=== PATIENT | female | born 2000 | race Caucasian/White ===

== ENCOUNTER 2024-08-04 21:26 | Emergency (ER) | payer SELFPAY ==
--- OUTSIDE RECORDS SUMMARY | 2022-06-17 20:00 | XMS_ITS | Continuity of Care Document ---
Author Organization [facility] o Address [address] [place] [address] Phone Care Team Providers Care Commissions Specialist Name Role Phone Kanu Patricia MD Unavailable Unavailable Procedures Procedure Date Independant Medical Exam Independant Medical Exam Advance Directives Directive Yes / No Effective Date File Name No Information Encounters Encounter Description Practice Location Reason(s) For Visit Diagnoses Date Provider Providers Copied on Encounter [facility], [facility] [place], [address], tel:[phone] [place] No Information 3 Harshad Bobby. [address] [place] [address], Formerly [facility], [facility], . tel:[phone] Referring Provider: Kanu Mcgill, [address] [place] [address], Formerly [facility], [facility]. tel:[phone] Family History Family Member Type Diagnosis Age At Onset No Information Payers Payer name Insurance type Covered green party ID Authoriza tion(s) No Information Social History Type Description Quantity Date Captured Comments Sex Male Smoking Status No Information Chief Complaint And Reason For Visit No Information Reason For Referral Reason For Referral No Information History Of Present Illness Encounter Date Complaint History Of Prese nt Illness No Information Functional Status Date Functional Assessmen t No Information Instructions Date Instruction Additional Infor mation No Information Assessments Type Assessment Date No Information Patient Care Teams Name Effective Dates (start - stop) Status Members No Information
[2024-08-04 21:45] VITALS: BP 139/89; PULSE 99; RESP 16; TEMP 36.8; O2SAT 100; BMI 29.9
--- OUTSIDE RECORDS SUMMARY | 2024-08-04 21:51 | XMS_ITS | Clinical Summary ---
Author Organization [employer] Address [address] [address] Care Team Providers Care Patient Representative Name Role Phone [facility] Primary Care Provider Allergies No known active allergies Medications No known medications Encounters Date Type Department Care Team Description 05/09/2024 1:34 PM EDT - 05/09/2024 2:20 PM EDT Emergency [facility] Emergency Department [address] [place] [phone] Len Dunlap MD Acute right ankle pain (Primary Dx) Discharge Disposition: Home or Self Care 05/09/2024 Travel from Last 3 Months Social History Tobacco Use Types Packs/Day Years Used Date Smoking Tobacco: Former Cigarettes Smokeless Tobacco: Current Tobacco Cessation:Ready to Q uit: Not Asked; Counseling Given: Not Answered Comments:vapes Alcohol Use Standard Drinks/Week Comments Yes 0 (1 standard drink = 0.6 oz pur e alcohol) Comments Unknown Sex and Gender Information Value Date Recorded Sex Assigned at Not on file Legal Sex Female 4:24 PM CDT Gender Identity Not on file Sexual Orientation Not on file Last Filed Vital Signs Vital Sign Reading Time Taken Comments Blood Pressure 149/94 05/09/2024 1:41 PM EDT Pulse 112 05/09/2024 1:45 PM EDT Temperature 36.3 C (97.3 F) 05/09/2024 1:41 PM EDT Respiratory Rate 16 05/09/2024 1:41 PM EDT Oxygen Saturation 98% 05/09/2024 1:45 PM EDT Inhaled Oxygen Concentration - - Weight 93 kg (205 lb) 05/09/2024 1:41 PM EDT Height 165.1 cm (5' 5 ) 03/04/2024 9:13 PM EST Body Mass Index 34.11 03/04/2024 9:13 PM EST Plan of Treatment Health Maintenance Due Date Last Done Comments Depression Screening (12+) 2010 Tobacco Cessation Counseling and Screening (12+) 2010 HIV Screening 2013 Hepatitis C Screening 2016 Lipid Panel 2018 Pap Smear 06/27/2019 COVID-19 VACCINE ( - 2023-2 5 season) 2023 10/28/2021, 01/13/2021 Influenza Vaccine (Season Ended) 2024 DTAP/TDAP/TD VACCINES (4 - T d or Tdap) 03/04/2033 03/04/2023, 10/23/2022, 07/28/2009 Pneumococcal Vaccine: 0-49 Years Aged Out No longer eligible b ased on patient's age to complete this topic Procedures Procedure Name Priority Date/Time Associated Diagnosis Comments XR ANKLE 3 VIEWS RIGHT STAT 05/09/2024 2:01 PM EDT XR FOOT 3 VIEWS RIGHT STAT 05/09/2024 2:01 PM EDT from Last 3 Months Results * XR foot 3 views right (05/09/2024 2:01 PM EDT) Anatomical Region Laterality Modality Foot, Ankle X-Ray 05/10/2024 12:2 5 PM EDT Impressions 05/10/2024 3:44 PM EDT No acute osseous findings. Mild ankle soft tissue swelling. Images personally reviewed, interpreted and dictated by KAREN Gentile. Narrative 05/10/2024 3:44 PM EDT CLINICAL INDICATION: Fall. EXAMINATION TECHNIQUE: XR FOOT 3 VIEWS RIGHT, XR ANKLE 3 VIEWS RIGHT COMPARISON: None. FINDINGS: Ankle: No acute fracture or malalignment. The ankle mortise is intact. The talar dome shows no osseous abnormalities. Bone mineralization is within normal limits. Mild ankle soft tissue swelling. No radiodense foreign bodies. Foot: No acute fracture or malalignment. No acute soft tissue abnormality. No radiodense foreign bodies. Bone mineralization is within normal limits. Procedure Note Duong Araiza MD - 05/10/2024 CLINICAL INDICATION: Fall. EXAMINATION TECHNIQUE: XR FOOT 3 VIEWS RIGHT, XR ANKLE 3 VIEWS RIGHT COMPARISON: None. FINDINGS: Ankle: No acute fracture or malalignment. The ankle mortise is intact. The talar dome shows no osseous abnormalities. Bone mineralization is within normal limits. Mild ankle soft tissue swelling. No radiodense foreign bodies. Foot: No acute fracture or malalignment. No acute soft tissue abnormality. No radiodense foreign bodies. Bone mineralization is within normal limits. IMPRESSION: No acute osseous findings. Mild ankle soft tissue swelling. Images personally reviewed, interpreted and dictated by KAREN Getnile. Holley Faith PA-C [facility] Final Result * XR ankle 3 views right (05/09/2024 2:01 PM EDT) Anatomical Region Laterality Modality Leg, Ankle, Foot X-Ray 05/10/2024 12:2 5 PM EDT Impressions 05/10/2024 3:44 PM EDT No acute osseous findings. Mild ankle soft tissue swelling. Images personally reviewed, interpreted and dictated by KAREN Gentile. Narrative 05/10/2024 3:44 PM EDT CLINICAL INDICATION: Fall. EXAMINATION TECHNIQUE: XR FOOT 3 VIEWS RIGHT, XR ANKLE 3 VIEWS RIGHT COMPARISON: None. FINDINGS: Ankle: No acute fracture or malalignment. The ankle mortise is intact. The talar dome shows no osseous abnormalities. Bone mineralization is within normal limits. Mild ankle soft tissue swelling. No radiodense foreign bodies. Foot: No acute fracture or malalignment. No acute soft tissue abnormality. No radiodense foreign bodies. Bone mineralization is within normal limits. Procedure Note Duong Araiza MD - 05/10/2024 CLINICAL INDICATION: Fall. EXAMINATION TECHNIQUE: XR FOOT 3 VIEWS RIGHT, XR ANKLE 3 VIEWS RIGHT COMPARISON: None. FINDINGS: Ankle: No acute fracture or malalignment. The ankle mortise is intact. The talar dome shows no osseous abnormalities. Bone mineralization is within normal limits. Mild ankle soft tissue swelling. No radiodense foreign bodies. Foot: No acute fracture or malalignment. No acute soft tissue abnormality. No radiodense foreign bodies. Bone mineralization is within normal limits. IMPRESSION: No acute osseous findings. Mild ankle soft tissue swelling. Images personally reviewed, interpreted and dictated by KAREN Gentile. Holley Faith PA-C [facility] Final Result from Last 3 Months Insurance AETNA [facility] Care Teams Patient Representative Relationship Specialty Start Date End Date [facility] Connection, [facility] [place] [address] PCP - General 03/04/24
--- OUTSIDE RECORDS SUMMARY | 2024-08-04 21:51 | XMS_ITS | Referral Summary ---
Author Organization [employer] Address [address] [place] [address] Care Team Providers Care Liquified Natural Gas Specialist Name Role Phone [facility], [facility] Primary Care Provider Encounters Date Type Department Care Team Description 05/09/2024 Travel 05/09/2024 1:34 PM EDT - 05/09/2024 2:20 PM EDT Emergency [facility] Emergency Department [address] [place] [phone] Len Dunlap MD Acute right ankle pain (Primary Dx) Discharge Disposition: Home or Self Care from Last 3 Months Allergies No known active allergies Medications No known medications Social History Tobacco Use Types Packs/Day Years [...] 03/04/2024 9:13 PM EST Plan of Treatment Not on file Procedures Procedure Name Priority Date/Time Associated Diagnosis [...] dictated by KAREN Gentile. Holley Faith PA-C [facility] Final Result * [...] dictated by KAREN Gentile. Holley Faith PA-C [facility] Final Result from Last 3 Months Insurance [employer] [place] Care Teams Liquified Natural Gas Specialist Relationship Specialty Start Date End Date [facility] Connection, [facility]A-Doc [facility] [place] [address] PCP - General 03/04/24
[2024-08-04 22:01] VITALS: BP 133/79; PULSE 96; O2SAT 100
[2024-08-04 22:30] VITALS: BP 129/88; PULSE 93; O2SAT 100
[2024-08-04 22:30] LABS: Strep Scrn Group A (Rapid) Negative (Negative)
--- NOTE | 2024-08-04 22:38 | ED_ITS ---
Discharge Plan Disposition Patient Disposition: Home, Self-Care Prescriptions Prescriptions: New ibuprofen 800 mg tablet 800 mg PO Q8H PRN (Reason: throat pain) Qty: 15 0RF Referrals Follow up/Referrals: Provider,Referral, MD [Primary Care Provider, Medical] - See instructions Activity Restrictions/Add. Instructions Additional Instructions/Restrictions: At this time it was felt you are safe to be discharged home. If new or worsening symptoms please do not hesitate to return the emergency department. Please take your ibuprofen 800s as prescribed. Clinical Impressions Clinical Impression: Pharyngitis Print Language Print Language: Greenlandic Discharge ED Provider: Kilo Martin General Adult HPI General Chief complaint: PAIN Stated complaint: Throat Swelling and Burning severe pain; Left side Time Seen by Provider: 08/04/24 21:45 Mode of Arrival: Ambulatory Source of Information: Patient Description of Symptoms (Recalled from ER Triage Doc. by RN): pt presents to the Ed d/t complaints of throat swelling and bleeding x3 days. pt states it started on left side of throat and is now on right side of throat. pt states shes vapes everyday. no bleeding at this time. History of Present Illness HPI narrative: Patient is 24-year-old female no pertinent past medical history presents emergency department for evaluation of sore throat. Onset was acute over the last 48 hours. It has been on both sides of the throat and is now worse on the left side. No trauma. No other acute complaints at this time. Please note that above description of symptoms, in this electronic medical record under categorization of recalled from ER triage doctor by RN are reflective of an initial nursing assessment, however, is not reflective of my full history and physical exam that was personally taken and clarified. Consequentially, this preceding description of symptoms, which may include the patient's categorized chief complaint in the EMR, do not reflect my personal clinical impression, and the ultimate description of history of present illness and patient stated complaints should be deferred to this section of the note. Unless stated otherwise or congruent with this section of the note, additional signs, symptoms, or incongruence should be interpreted as inaccurate with my clinical impression. Related Data Previous Rx's ?Medication ?Instructions ?Recorded ibuprofen 800 mg tablet 800 mg PO Q8H PRN throat leslie n #[id number] 08/04/24 tabs Allergies Allergy/AdvReac Type Severity Reaction Status Date / Time No Known Allergies Allergy Verified 08/04/24 22:04 PFSH PFSH Disclaimer: The information contained in this section may have been updated after the patient was seen, as this information can be updated by other users. Social History Smoking Status: Current every day smoker alcohol intake: never current occupational status: other Travel in the last 8 weeks?: None ROS Obtained: Yes Systems reviewed as appropriate & no additional complaints except as documented Physical Exam General General appearance: alert and in no apparent distress Head Head exam: atraumatic and normocephalic Eye Eye exam: Present PERRL and EOMI ENT ENT exam: Present mucous membranes moist; Absent normal oropharynx (Symmetrically enlarged bilateral palate teen tonsils with exudate uvula midline) Neck Neck exam: Present normal inspection and full ROM Chest Chest inspection: Present normal inspection and symmetric chest wall rise Respiratory Respiratory exam: Present normal lung sounds bilaterally; Absent respiratory distress Cardiovascular Cardiovascular exam: Present regular rate and normal rhythm Extremities Exam Extremities exam: Present normal inspection Neurological Exam Neurological exam: Present alert and CN II-XII intact; Absent motor sensory deficit Psychiatric Psychiatric exam: Present normal affect Skin Skin exam: Present warm and dry Medical Decision Making Medical Records Screening: Per USPSTF and CDC recommendations, given the prevalence of disease in our region, it is our hospital?s policy to screen for HIV and viral Hepatitis for all patients aged 18 and over and those with ongoing risk factors. Marco Inquiry Pt receiving controlled substance: No Vital Signs: 08/04/24 21:45 Temperature 98.3 F Temperature Source Oral Pulse Rate [Right Radial] 99 H Respiratory Rate 16 Blood Pressure [Right Arm] 139/89 Blood Pressure Mean [Right Arm] 105 Blood Pressure Position [Right Arm] Sitting 02 Sat by Pulse Oximetry 100 Oxygen Delivery Method Room Air Lab Data Lab Results 08/04/24 22:16: Group A Strep Rapid Negative Orders (Tests/Meds): ED MEDICATIONS Discontinued Medications Generic Name Dose Route Start Last Admin Trade Name Freq PRN Reason Stop Dose Admin Acetaminophen 1,000 mg 08/04/24 22:30 Acetaminophen 500mg Tab PO 08/04/24 22:31 ONCE ONE Dexamethasone 10 mg 08/04/24 22:30 Dexamethasone 4mg Tablet PO 08/04/24 22:31 ONCE ONE Ibuprofen 600 mg 08/04/24 22:30 Ibuprofen 600 Mg Tablet PO 08/04/24 22:31 ONCE ONE ORDERS Category Date Time Status Strep Scrn Group A (Rapid) Stat Lab 08/04/24 22:16 Completed Strep Screen Confirmation Stat Micro 08/04/24 22:16 Received Medical Decision Narrative: In summary patient is a 24-year-old female past medical history described above presents emergency department for evaluation of sore throat. Patient is hemodynamically stable nontoxic-appearing upon arrival, afebrile. Differential includes strep pharyngitis, viral pharyngitis, among others. Patient has full range of motion of the neck so I do not suspect deep space infection has symmetric swollen tonsils no concern for peritonsillar abscess. Given this limited workup we conducted with strep swab although imaging was considered will be deferred for reasons described above. Initial inventions include Tylenol, ibuprofen, dexamethasone. Strep swab reviewed by me and is negative. Given this patient is appropriate for discharge at this time will be discharged with a course of ibuprofen 800s and was given return precautions. Critical Care Critical Care Time Critical Care Time: No
[2024-08-04] MEDS: ACETAMINOPHEN 500MG TAB 1000 MG PO (22:40)
[2024-08-04] MEDS: DEXAMETHASONE 4MG TABLET 10 MG PO (22:40)
[2024-08-04] MEDS: IBUPROFEN 600 MG TABLET PO (22:40)
[2024-08-04] MEDS: BELLADONNA ALKALOIDS 60 ML ML PO (22:45)
[2024-08-04 22:56] VITALS: BP 129/88; PULSE 93; RESP 16; TEMP 36.7; O2SAT 100
== END 2024-08-04 23:00 | disposition home or self-care (01) ==
PROVIDERS: Emergency Provider Emergency Medicine
DX: J02.9 Acute pharyngitis, unspecified (principal); F17.210 Nicotine dependence, cigarettes, uncomplicated
CPT/HCPCS: 87430; 99283; J8540

== ENCOUNTER 2024-12-19 07:08 | Emergency (ER) | payer SELFPAY ==
[2024-12-19 07:17] VITALS: BP 142/99; PULSE 96; RESP 16; TEMP 36.9; O2SAT 100; BMI 30.9
--- OUTSIDE RECORDS SUMMARY | 2024-12-19 07:19 | XMS_ITS | Referral Summary ---
Author Organization [employer] ([place], [place], [place], [place], [place]) Address [address] [place] [address] Care Team Providers Care Community Health Program Representative Name Role Phone [facility], [facility]Doc Primary Care Provider Allergies No known [...] EST Plan of Treatment Not on file Insurance [employer] [place] Care Teams Community Health Program Representative Relationship Specialty Start Date End Date [facility] Connection, Find-A-Doc [facility] [place] [address] PCP - General 03/04/24
--- OUTSIDE RECORDS SUMMARY | 2024-12-19 07:19 | XMS_ITS | Clinical Summary ---
Author Organization [employer] ([place], [place], [place], [place], [place]) Address [address] [place] [address] Care Team Providers Care Light Out Examiner Name Role Phone [facility], [facility]Doc Primary Care Provider Allergies No [...] Panel 2018 Pap Smear 06/27/2019 COVID-19 VACCINE (3 - 2024-2 6 season) 2024 10/28/2021, 01/13/2021 Influenza Vaccine (#1) 2024 DTAP/TDAP/TD VACCINES (4 - T d or Tdap) 03/04/2033 03/04/2023, 10/23/2022, 07/28/2009 Pneumococcal Vaccine: 0-49 Years Aged Out No longer eligible b ased on patient's age to complete this topic Insurance AETNA [facility] Care Teams Light Out Examiner Relationship Specialty Start Date End Date [facility] Connection, Find[facility]A-Doc [facility] [place] [address] PCP - General 03/04/24
--- NOTE | 2024-12-19 07:21 | ECG_ITS ---
APPROVED REPORT Exam: Resting ECG HR:90 bpm ECG Measurements Heart Rate 90 AXES NH 170 P 50 QRSd 89 QRS 37 QT 353 T 5 QTc 401 Conclusion SINUS RHYTHM NONSPECIFIC T-WAVE ABNORMALITY BORDERLINE ECG UNCONFIRMED REPORT Electronically signed by : NIRMAL MENSAH, 12/20/2024 02:18:14
--- NOTE | 2024-12-19 07:35 | ED_ITS ---
Discharge Plan Disposition Patient Disposition: Home, Self-Care Prescriptions Prescriptions: New promethazine 25 mg tablet 25 mg PO TID PRN (Reason: nausea and vomiting) Qty: 12 0RF No Action ibuprofen 800 mg tablet 800 mg PO Q8H PRN (Reason: throat pain) Qty: 15 0RF Referrals Follow up/Referrals: Provider,Referral, [Primary Care Provider, Medical] - See instructions Saman Thompson II, MD [Staff Physician, Gastroenterology] - See instructions Activity Restrictions/Add. Instructions Additional Instructions/Restrictions: At this time it was felt you are safe to be discharged home. If new or worsening symptoms please do not hesitate to return the emergency department. Please take your medications as prescribed and call and schedule an appoint with Dr. Thompson as soon as you are able. Clinical Impressions Clinical Impression: Vomiting Instructions Patient Instructions: DI for Acute Abdominal Pain Print Language Print Language: Cymraes Discharge ED Provider: Kilo Martin General Adult HPI General Chief complaint: Abdominal Pain Stated complaint: vomitting, weakness Time Seen by Provider: 12/19/24 07:14 Mode of Arrival: Ambulatory Source of Information: Patient Description of Symptoms (Recalled from ER Triage Doc. by RN): patient states she has been vomiting intermitently for 3 weeks. also having burning URQ pain. History of Present Illness HPI narrative: Patient is 24-year-old female with history of chronic ocular problems with horizontal nystagmus at baseline, previous cholecystectomy, POTS, intermittent constipation who presents emergency department for evaluation of intractable vomiting. Onset was subacute occurring over the last 3 weeks, nonbloody. She does have a history of intermittent constipation for which she has taken senna and has been successful. Her bowel movements have been nonbloody last bowel movement within the last 24 hours. She has persistent vomiting with anything that she eats nonbloody. She has epigastric abdominal discomfort after retching with associated burning which then subsides however her vomiting persists. No chest pain. No back pain, no headache, no other acute complaints at this time. Please note that above description of symptoms, in this electronic medical record under categorization of recalled from ER triage doctor by RN are reflective of an initial nursing assessment, however, is not reflective of my full history and physical exam that was personally taken and clarified. Consequentially, this preceding description of symptoms, which may include the patient's categorized chief complaint in the EMR, do not reflect my personal clinical impression, and the ultimate description of history of present illness and patient stated complaints should be deferred to this section of the note. Unless stated otherwise or congruent with this section of the note, additional signs, symptoms, or incongruence should be interpreted as inaccurate with my clinical impression. Related Data Previous Rx's ?Medication ?Instructions ?Recorded ibuprofen 800 mg tablet 800 mg PO Q8H PRN throat leslie n #15 08/04/24 tabs promethazine 25 mg tablet 25 mg PO TID PRN nausea and 12/19/24 vomiting #12 tabs Allergies Allergy/AdvReac Type Severity Reaction Status Date / Time No Known Allergies Allergy Verified 08/04/24 22:04 [facility] Disclaimer: The information contained in this section may have been updated after the patient was seen, as this information can be updated by other users. Social History (Updated 08/04/24 @ 22:43 by Kilo Martin MD) Smoking Status: Current every day smoker alcohol intake: never current occupational status: other Travel in the last 8 weeks?: None Have you lived/traveled outside [place] in past 30 days?: No Contact w/someone who lives/traveled outside [place] past 30 days?: No Exposure to someone with infectious disease in past 14 days?: No Do you have a fever (greater than 100.4 F or 38 C)?: No Have you tested positive for COVID-19?: No Exposed to someone with COVID-19 in past 14 days?: No Do you have a sore throat?: No Do you have a cough?: No Do you have any weakness?: No Do you have any diarrhea?: No Are you experiencing any unusual bleeding?: No Do you have any muscle aches/pain?: No Do you have any abdominal pain?: No Are you experiencing loss of taste or smell?: No ROS Obtained: Yes Systems reviewed as appropriate & no additional complaints except as documented Physical Exam General General appearance: alert and in no apparent distress Head Head exam: atraumatic and normocephalic Eye Eye exam: Present PERRL, EOMI and other (Horizontal nystagmus at rest intermittently) ENT ENT exam: Present mucous membranes moist Neck Neck exam: Present normal inspection Chest Chest inspection: Present normal inspection and symmetric chest wall rise Respiratory Respiratory exam: Present normal lung sounds bilaterally; Absent respiratory distress Cardiovascular Cardiovascular exam: Present regular rate and normal rhythm Abdominal Exam Abdominal exam: Present soft; Absent tenderness, guarding or rebound Extremities Exam Extremities exam: Present normal inspection Neurological Exam Neurological exam: Present alert; Absent motor sensory deficit Psychiatric Psychiatric exam: Present normal affect Skin Skin exam: Present warm and dry Medical Decision Making Medical Records Screening: Per USPSTF and CDC recommendations, given the prevalence of disease in our region, it is our hospital?s policy to screen for HIV and viral Hepatitis for all patients aged 18 and over and those with ongoing risk factors. Marco Inquiry Pt receiving controlled substance: No Vital Signs: 12/19/24 07:17 12/19/24 08:00 Temperature 98.5 F Temperature Source Oral Pulse Rate 90 Pulse Rate [Right Radial] 96 H Respiratory Rate 16 Blood Pressure [Right Arm] 142/99 H Blood Pressure Mean [Right Arm] 113 Blood Pressure Source [Right Arm] Automatic Cuff Blood Pressure Position [Right Arm] Supine 02 Sat by Pulse Oximetry 100 99 Oxygen Delivery Method Room Air Room Air Lab Data Lab Results 12/19/24 07:21: Urine Color Yellow, Urine Appearance Clear, Urine pH 5.5, Ur Specific [place] >= 1.030, Urine Protein Trace, Urine Glucose (UA) Negative, Urine Ketones Negative, Urine Blood Negative, Urine Nitrate Negative, Urine Bilirubin 1+ A, Urine Urobilinogen 0.2, Ur Leukocyte Esterase Negative, Urine RBC Occasional, Urine WBC None, Ur Squamous Epith Cells 20-50, Urine Bacteria 1+, Urine Yeast 3+ 12/19/24 07:22: WBC 13.6 H, RBC 5.04, Hgb 14.8, Hct 43.4, MCV 86.1, MCH 29.4, MCHC 34.1, RDW 13.6, Plt Count 320, MPV 11.7 H, Neut % (Auto) 75.9, Lymph % (Auto) 14.8, [place] % (Auto) 4.9, Eos % (Auto) 3.8, Baso % (Auto) 0.4, Neut # (Auto) 10.3 H, Lymph # (Auto) 2.0, [place] # (Auto) 0.7, Eos # (Auto) 0.5 H, Baso # (Auto) 0.1, Sodium 138, Potassium 3.8, Chloride 100, Carbon Dioxide 28, Anion Gap 13.8, BUN 9, Creatinine 0.80, Estimated Creat Clear 147, Estimated GFR 87, Est GFR ( Amer) 105, Glucose 100, Calcium 10.0, Total Bilirubin 0.6, AST 31, ALT 32, Alkaline Phosphatase 90, Troponin I < 0.01, Total Protein 8.5 H, Albumin 4.9, Globulin 3.6 H, Albumin/Globulin Ratio 1.4, Lipase 98, Serum HCG, Qual Negative 12/19/24 07:42: VBG pH 7.30 L, VBG pCO2 50.3, VBG pO2 29.6, VBG HCO3 24.0, VBG Total CO2 25.6, VBG O2 Saturation 55.5, VBG Base Excess -2.4, VBG Lactic Acid 0.9 12/19/24 07:22 12/19/24 07:22 Orders (Tests/Meds): ED MEDICATIONS Discontinued Medications Generic Name Dose Route Start Last Admin Trade Name Freq PRN Reason Stop Dose Admin Belladonna Alkaloids 60 ml 12/19/24 08:01 12/19/24 08:21 Belladonna Alkaloids 60 Ml Ml PO 12/19/24 08:02 60 ml ONCE ONE Administration Lactated Ringer's 1,000 mls @ 999 mls/hr 12/19/24 07:21 12/19/24 08:53 Lactated Ringer's 1000 Ml Bag IV 12/19/24 08:21 Infused .Q1H1M ONE Infusion Ondansetron HCl 4 mg 12/19/24 07:21 12/19/24 08:08 Ondansetron 4mg/2ml Vial IV 12/19/24 07:22 Not Given ONCE ONE Promethazine HCl 25 mg 12/19/24 07:34 12/19/24 07:50 Promethazine Hcl 25mg/Ml 1ml Vial IV 12/19/24 07:35 25 mg ONCE ONE Administration Sodium Chloride 25 ml 12/19/24 07:34 12/19/24 07:51 Sodium Chloride 0.9% 25ml Bag IV 12/19/24 07:35 25 ml ONCE ONE Administration ORDERS Category Date Time Status CBC w/Auto Diff [Complete Blood Count Auto Diff] Stat Lab 12/19/24 07:22 Completed CMP [Comprehensive Metabolic Panel] Stat Lab 12/19/24 07:22 Completed HCG Qualitative, Serum Stat Lab 12/19/24 07:22 Completed HIV Combo Stat Lab 12/19/24 08:10 Ordered Hepatitis C Ab Qual. W/ RFX Stat Lab 12/19/24 08:10 Ordered Lipase Stat Lab 12/19/24 07:22 Completed Trop I [Troponin I] Stat Lab 12/19/24 07:22 Completed Troponin I Q3H Lab 12/19/24 10:30 Ordered Troponin I Q3H Lab 12/19/24 13:30 Ordered UA [Urinalysis and Microscopic] Stat Lab 12/19/24 07:21 Completed VBG [Venous Blood Gas] Stat RT 12/19/24 07:42 Completed ECG Data Tracing #1: Independently interpreted by me rate is 90, rhythm is regular, axis is normal, no ST elevation in anatomical contiguous leads, QTc 401. Medical Decision Narrative: In summary patient is a 24-year-old female with past medical history described above who presents emergency department for evaluation of subacute nonbloody vomiting. Patient is hemodynamically stable nontoxic-appearing upon arrival, afebrile. Differential for subacute vomiting includes protracted viral illness, gastric emptying problems, pancreatitis, among others. Patient does not have a focal tender abdomen therefore CT imaging was considered but is unlikely to be beneficial will be deferred. No concern for obstruction given that patient has last bowel movement within the last 24 hours. No concern for gastrointestinal bleeding based on history. In totality workup will be conducted with hematologic labs, urinalysis. Initial inventions include crystalloid bolus, Phenergan given that her symptoms have been refractory to Zofran. With the exception of her baseline nystagmus patient has a nonfocal neurologic exam and no headache my concern for [employer] process is low imaging was considered will be deferred. Initial workup reviewed by me minimal leukocytosis, essentially normal acid-base status no GERMAN or critical electrolyte abnormality hCG negative urinalysis interpreted by me and not consistent with infection. Patient underwent p.o. trial with successful given this patient is appropriate for outpatient management at this time will be discharged with a course of Phenergan will follow-up with Dr. Thompson on an outpatient basis and was given return precautions. Critical Care Critical Care Time Critical Care Time: No
[2024-12-19 07:38] LABS: Hematocrit 43.4 % (37.0-47.0); Hemoglobin 14.8 g/dL (12.2-16.2); Immature Granulocytes % 0.2 %; Mean Corpuscular HGB Conc 34.1 g/dL (31.8-35.4); Mean Corpuscular Hemoglobin 29.4 pg (27.0-31.2); Mean Corpuscular Volume 86.1 fl (81-99); Nucleated Red Blood Cells % 0 %; Platelet Count 320 K/mm3 (142-424); Red Blood Count 5.04 M/mm3 (4.20-5.40); Red Cell Distribution Width-SD 42.5 fL; White Blood Count 13.6 K/mm3 (4.8-10.8)
[2024-12-19] MEDS: PROMETHAZINE HCL 25MG/ML 1ML VIAL 25 MG IV (07:50)
[2024-12-19] MEDS: LACTATED RINGERS 1000ML 1,000 ML 999 ML IV (07:51)
[2024-12-19] MEDS: SODIUM CHLORIDE 0.9% 25ML BAG 25 ML IV (07:51)
[2024-12-19 07:56] LABS: Lactate Venous 0.9 mmol/L (0.4-2.0); VBG HCO3 24.0 mmol/L (23-30); VBG PH 7.30 mmol/L (7.31-7.41); VBG PO2 29.6 mmol/L (28-40)
[2024-12-19 07:58] LABS: VBG PCO2 50.3 mmol/L (35-51)
[2024-12-19 08:00] VITALS: PULSE 90; O2SAT 99
[2024-12-19 08:07] LABS: Alanine Aminotransferase 32 U/L (12-78); Albumin Level 4.9 g/dl (3.5-5.0); Albumin/Globulin Ratio 1.4 (1.1-1.8); Alkaline Phosphatase 90 U/L (38-126); Anion Gap 13.8 mEq/L (5-15); Aspartate Amino Transferase 31 U/L (14-36); Bilirubin,Total 0.6 mg/dl (0.2-1.3); Blood Urea Nitrogen 9 mg/dl (7-17); Calcium 10.0 mg/dl (8.4-10.2); Carbon Dioxide 28 mmol/L (22.0-30.0); Chloride 100 mmol/L (98-107); Creatinine Clearance Estimated 147 mL/min (50-200); Creatinine,Serum 0.80 mg/dl (0.52-1.04); Estimated Glomerular Filt Rate 87 ml/min (>60); GFR (African American) 105 ML/MIN (>60); Globulin 3.6 g/dL (1.3-3.2); Glucose 100 mg/dl (74-100); Lipase 98 U/L (23-300); Potassium 3.8 mmoL/L (3.5-5.1); Sodium 138 mmol/L (136-145); Total Protein,Serum 8.5 g/dl (6.3-8.2)
[2024-12-19 08:15] LABS: Microscopic, Urine URINE MICROSCOPIC (MICROSCOPIC)
[2024-12-19 08:15] LABS: HCG Qualitative, Serum Negative (Negative)
[2024-12-19 08:19] LABS: Troponin I < 0.01 ng/ml (0.00-0.034)
[2024-12-19 08:21] LABS: Color,Urine YELLOW (Yellow); Glucose,Urine (UA) Negative (Negative); Ketones,Urine Negative (Negative); Leukocyte Esterase,Urine Negative (Negative); PH,Urine 5.5 (5.0-8.5); Protein,Urine TRACE (Negative); Specific Gravity, Urine >= 1.030 (1.005-1.030); Urobilinogen,Urine 0.2 EU/dl (0.2)
[2024-12-19] MEDS: BELLADONNA ALKALOIDS 60 ML ML PO (08:21)
--- NOTE | 2024-12-19 08:25 | PC.NURSE ---
provider notified flagging sepsis heart rate and wbc, provider states no need for cultures or sepsis workup
[2024-12-19 08:27] LABS: Bilirubin,Urine 1+ (Negative)
[2024-12-19 08:32] LABS: RBC,Urine Occasional #/hpf (0-3)
[2024-12-19 08:33] LABS: Bacteria,Urine 1+ /lpf; Squamous Epithelial Cell,Urine 20-50 #/hpf (0-5)
[2024-12-19 09:32] VITALS: BP 135/85; PULSE 85; RESP 15; TEMP 36.9; O2SAT 99
[2024-12-19 13:13] LABS: Hepatitis C Ab Qual. W/ RFX NEGATIVE (Negative)
== END 2024-12-19 09:33 | disposition home or self-care (01) ==
PROVIDERS: Emergency Provider Emergency Medicine
DX: R11.2 Nausea with vomiting, unspecified (principal); H55.00 Unspecified nystagmus; F17.210 Nicotine dependence, cigarettes, uncomplicated
CPT/HCPCS: 80053; 81001; 82803; 83690; 84484; 84703; 85025; 86803; 87389; 93005; 96361; 96374; 99284; 99285; J2550; J7120